=== PATIENT | male | born 1995 | race Caucasian/White ===

== ENCOUNTER 2021-02-13 09:59 | Emergency (ER) | payer OTHER ==
[2021-02-13 10:04] VITALS: BP 131/77; PULSE 82; TEMP 98; BMI 36.9
[2021-02-13] MEDS ORDERED: IBUPROFEN 600 MG TABLET (FP) PO ONE ×2 (10:31→10:36)
== END 2021-02-13 11:50 | disposition home or self-care (01) ==
LOC: JERFT 09:59
DX: S63.121A Subluxation of interphalangeal joint of right thumb, initial encounter (principal)
CPT/HCPCS: 73130-TC-RT-FY; 99283-25